=== PATIENT | female | born 1940 | race Caucasian/White ===

== ENCOUNTER 2016-11-17 13:39 | Emergency (ER) | payer MEDICARE, OTHER ==
[2016-11-17] MEDS ORDERED: NS 0.9% 1000 ML* 1,000 ML IV ONE (14:56)
[2016-11-17 15:08] LABS: Hematocrit 38 % (35-47); Hemoglobin 12.7 g/dl (12.0-16.0); Mean Corpuscular HGB Conc 33 g/dl (31-36); Mean Corpuscular Hemoglobin 29 pg (27-31); Mean Corpuscular Volume 87 fL (80-97); Mean Platelet Volume 7 um3 (7.4-10.4); Red Blood Count 4.41 10^6/ul (4.0-5.4); Red Cell Distribution Width 14 % (10.5-15); White Blood Count 8.2 10^3/ul (3.5-10.8)
--- NOTE | 2016-11-17 15:28 | RAD ---
INDICATION: Severe LEFT flank pain which comes and goes. Current episode lasted for past 2 days. COMPARISON: November 01, 2006 CT. TECHNIQUE: Multidetector CT images were obtained from the lung bases to the ischial tuberosities. Evaluation of the viscera is limited without IV contrast. Multiplanar reformation. REPORT: No suspicious finding at the visualized lung bases. 10 cm simple appearing exophytic cyst at the superior pole of the RIGHT kidney results in impression on the RIGHT posterior hepatic segment. No suspicious abnormality of the liver. Negative for biliary dilatation. Unremarkable CT appearance of the gallbladder, pancreas, spleen. Negative for CT abnormality of the upper GI, small bowel, appendix visualized peripheral to the cecum. Severe diverticulosis of the colon most marked at the sigmoid colon without findings of diverticulitis. Negative for ascites or free air. Small fat-containing umbilical hernia without inflammatory change. Normal adrenal glands. In addition to the 10 cm exophytic upper pole cyst a few additional smaller cysts of the RIGHT kidney are present measuring up to 6.7 cm maximum dimension. 2 cm exophytic cyst posterior mid pole LEFT kidney. No suspicious focal renal lesions or hydronephrosis. Unremarkable ureters and partially distended urinary bladder as well as the anteverted uterus and adnexal regions. Pelvic phleboliths noted. Negative for lymphadenopathy. Atherosclerotic calcification of normal diameter abdominal aorta and iliac arteries. Physiologic distention of the IVC. 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 No suspicious focal osseous lesions evident. IMPRESSION: 1. Multiple large simple appearing RIGHT renal cortical cysts. Smaller LEFT renal cortical cyst. No suspicious focal renal lesions, urolithiasis, or hydronephrosis. 2. Colonic diverticulosis most marked at the sigmoid colon without findings of diverticulitis.
[2016-11-17 15:30] LABS: Albumin 4.5 g/dL (3.2-5.2); BUN/Creatinine Ratio 18.2 (8-20); C Reactive Protein 2.73 mg/L (< 5.00); Calcium 10.4 mg/dL (8.6-10.3); EGFR African American 80.1 (>60); EGFR Non-African American 62.3 (>60); Globulin 3.6 g/dL (2-4); Potassium 4.2 mmol/L (3.5-5.0); Total Bilirubin 0.6 mg/dL (0.2-1.0); Total Protein 8.1 g/dL (6.4-8.9)
[2016-11-17 15:46] LABS: Urine Bacteria Absent (Absent); Urine Bilirubin Negative (Negative); Urine Glucose Negative (Negative); Urine Nitrite Negative (Negative)
[2016-11-17 16:19] VITALS: BP 146/67
[2016-11-17] MEDS ORDERED: oxyCODONE/Acetamin 5/325 MG* TAB PO ONE (17:01)
[2016-11-17 17:10] LABS: Urine Bilirubin Negative (Negative); Urine Glucose Negative (Negative); Urine Nitrite Negative (Negative)
--- NOTE | 2016-11-17 17:54 | ED ---
Babatunde Adair Billy, scribed for Edvin Abdullahi MD on 11/17/16 at 1448 . GI/ HPI - HPI Summary HPI Summary: Patient is a 75 year-old female coming to [facility] presenting with intermittent left-sided flank pain starting 2 days ago. Pain severity 5/10. She reports diaphoresis associated with the pain but otherwise has no complaints. She states that she has had several episodes of similar pain in the past, with the first episode starting 2 years ago. However, she denies any history of kidney stones or back problems. - History of Current Complaint Chief Complaint: EDFlankPain Time Seen by Provider: 11/17/16 14:41 Stated Complaint: LOWER BACK PAIN Hx Obtained From: Patient Onset/Duration: Started Days Ago, Still Present Timing: Intermittent Severity: Moderate Current Severity: Moderate Pain Intensity: 5 Location of Pain: Flank - left Associated Signs and Symptoms: Positive: Diaphoresis Aggravating Factor(s): Nothing Alleviating Factor(s): Nothing - Allergy/Home Medications Allergies/Adverse Reactions: Allergies Allergy/AdvReac Type Severity Reaction Status Date / Time Latex Allergy RED ITCHY Verified 11/17/16 13:55 RINGS WITH CONTACT BANDAIDS Allergy RED, ITCHY Uncoded 11/17/16 13:55 AT SITE PMH/Surg Hx/FS Hx/Imm Hx Cardiovascular History: Reports: Hx Hypertension - ON MEDICATION GI History: Reports: Hx Gastroesophageal Reflux Disease, Hx Jaundice - A CHILD [id number], Other GI Disorders - OCCASIONAL INDIGESTION TAKES ZANTAC WHEN NEEDED, NO PROBLEMS NOW History: Denies: Hx Kidney Stones, Hx Renal Disease Musculoskeletal History: Reports: Hx Arthritis - BILATERAL THUMBS AND ONE OF FINGERS Denies: Hx Osteoporosis Sensory History: Reports: Hx Contacts or Glasses - READING GLASSES Denies: Hx Hearing Aid Opthamlomology History: Reports: Hx Contacts or Glasses - READING GLASSES - Cancer History Hx Chemotherapy: No Hx Radiation Therapy: No - Surgical History Surgery Procedure, Year, and Place: BILATERAL TUBAL LIGATION RESULTING IN FULL ABDOMINAL SURGERY, POSSIBLE PERFORATION OF BOWEL, [facility]. 2010 COLONOSCOPY. 2011 SEBACEOUS CYST REMOVED, OFFICE, 09/27/13 RIGHT BREAST BIOPSY Hx Anesthesia Reactions: No Infectious Disease History: No Infectious Disease History: Denies: Traveled Outside the [place] in Last 30 Days - Family History Known Family History: Positive: Other - lung cancer - Social History Alcohol Use: Occasionally Hx Substance Use: No Substance Use Type: Reports: None Hx Tobacco Use: No Smoking Status (MU): Never Smoked Tobacco Review of Systems Positive: Skin Diaphoresis. Negative: Fever Positive: flank pain All Other Systems Reviewed And Are Negative: Yes Physical Exam - Summary Physical Exam Summary: VITAL SIGNS: Reviewed. GENERAL: Patient is a well developed and nourished female who is lying comfortable in the stretcher. Patient is not in any acute respiratory distress. HEAD AND FACE: Normocephalic and atraumatic. EYES: PERRLA, EOMI x 2, No injected conjunctiva. EARS: Hearing grossly intact. Ear canals and tympanic membranes are WNL. MOUTH: Oropharynx within normal limits. NECK: Supple, trachea is midline, no adenopathy, no JVD. CHEST: Symmetric, no tenderness at palpation LUNGS: Clear to auscultation bilaterally. No wheezing or crackles. CVS: RRR,, S1 and S2 present, no murmurs or gallops appreciated. ABDOMEN: Soft, non-tender. No signs of distention. Positive bowel sounds. No rebound no guarding, and no masses palpated. No abdominal bruit or pulsations. Positive left CVAT's. EXTREMITIES: FROM in all major joints, no edema, no cyanosis or clubbing. NEURO: Alert and oriented x 3. No acute neurological deficits. Speech is normal. SKIN: Dry and warm Triage Information Reviewed: Yes Vital Signs On Initial Exam: Initial Vitals Temp Pulse Resp BP Pulse Ox 98.1 F 100 16 155/79 100 11/17/16 13:55 11/17/16 13:55 11/17/16 13:55 11/17/16 13:55 11/17/16 13:55 Vital Signs Reviewed: Yes Diagnostics - Vital Signs Vital Signs Temp Pulse Resp BP Pulse Ox 11/17/16 13:55 98.1 F 100 16 155/79 100 - Laboratory Lab Results: Lab Results 11/17/16 11/17/16 11/17/16 Range/Units 14:55 14:55 14:55 WBC 8.2 (3.5-10.8) 10^3/ul RBC 4.41 (4.0-5.4) 10^6/ul Hgb 12.7 (12.0-16.0) g/dl Hct 38 (35-47) % MCV 87 (80-97) fL MCH 29 (27-31) pg MCHC 33 (31-36) g/dl RDW 14 (10.5-15) % Plt Count 342 (150-450) 10^3/ul MPV 7 L (7.4-10.4) um3 Neut % (Auto) 65.5 (38-83) % Lymph % (Auto) 26.0 (25-47) % [place] % (Auto) 5.5 (1-9) % Eos % (Auto) 2.0 (0-6) % Baso % (Auto) 1.0 (0-2) % Absolute Neuts (auto) 5.3 (1.5-7.7) 10^3/ul Absolute Lymphs (auto) 2.1 (1.0-4.8) 10^3/ul Absolute Monos (auto) 0.4 (0-0.8) 10^3/ul Absolute Eos (auto) 0.2 (0-0.6) 10^3/ul Absolute Basos (auto) 0.1 (0-0.2) 10^3/ul Absolute Nucleated RBC 0.01 10^3/ul Nucleated RBC % 0.1 Sodium 128 L (133-145) mmol/L Potassium 4.2 (3.5-5.0) mmol/L Chloride 96 L (101-111) mmol/L Carbon Dioxide 26 (22-32) mmol/L Anion Gap 6 (2-11) mmol/L BUN 16 (6-24) mg/dL Creatinine 0.88 (0.51-0.95) mg/dL Est GFR ( Amer) 80.1 (>60) Est GFR (Non-Af Amer) 62.3 (>60) BUN/Creatinine Ratio 18.2 (8-20) Glucose 95 (70-100) mg/dL Lactic Acid (0.5-2.0) mmol/L Calcium 10.4 H (8.6-10.3) mg/dL Total Bilirubin 0.60 (0.2-1.0) mg/dL AST 24 (13-39) U/L ALT 16 (7-52) U/L Alkaline Phosphatase 54 (34-104) U/L C-Reactive Protein 2.73 (< 5.00) mg/L B-Natriuretic Peptide ( - 100) pg/mL Total Protein 8.1 (6.4-8.9) g/dL Albumin 4.5 (3.2-5.2) g/dL Globulin 3.6 (2-4) g/dL Albumin/Globulin Ratio 1.3 (1-3) Amylase 67 (29-103) U/L Lipase 31 (11.0-82.0) U/L Urine Color Yellow Urine Appearance Clear Urine pH 5.0 (5-9) Ur Specific [place] 1.010 (1.010-1.030) Urine Protein Negative (Negative) Urine Ketones Negative (Negative) Urine Blood Negative (Negative) Urine Nitrate Negative (Negative) Urine Bilirubin Negative (Negative) Urine Urobilinogen Negative (Negative) Ur Leukocyte Esterase 2+ H (Negative) Urine WBC (Auto) 2+(11-20/hpf) H (Absent) Urine RBC (Auto) Trace(0-2/hpf) (Absent) Ur Squamous Epith Cells Present H (Absent) Urine Bacteria Absent (Absent) Urine Glucose Negative (Negative) Urine Ascorbic Acid * H (Negative) 11/17/16 11/17/16 Range/Units 14:55 14:55 WBC (3.5-10.8) 10^3/ul RBC (4.0-5.4) 10^6/ul Hgb (12.0-16.0) g/dl Hct (35-47) % MCV (80-97) fL MCH (27-31) pg MCHC (31-36) g/dl RDW (10.5-15) % Plt Count (150-450) 10^3/ul MPV (7.4-10.4) um3 Neut % (Auto) (38-83) % Lymph % (Auto) (25-47) % [place] % (Auto) (1-9) % Eos % (Auto) (0-6) % Baso % (Auto) (0-2) % Absolute Neuts (auto) (1.5-7.7) 10^3/ul Absolute Lymphs (auto) (1.0-4.8) 10^3/ul Absolute Monos (auto) (0-0.8) 10^3/ul Absolute Eos (auto) (0-0.6) 10^3/ul Absolute Basos (auto) (0-0.2) 10^3/ul Absolute Nucleated RBC 10^3/ul Nucleated RBC % Sodium (133-145) mmol/L Potassium (3.5-5.0) mmol/L Chloride (101-111) mmol/L Carbon Dioxide (22-32) mmol/L Anion Gap (2-11) mmol/L BUN (6-24) mg/dL Creatinine (0.51-0.95) mg/dL Est GFR ( Amer) (>60) Est GFR (Non-Af Amer) (>60) BUN/Creatinine Ratio (8-20) Glucose (70-100) mg/dL Lactic Acid 0.8 (0.5-2.0) mmol/L Calcium (8.6-10.3) mg/dL Total Bilirubin (0.2-1.0) mg/dL AST (13-39) U/L ALT (7-52) U/L Alkaline Phosphatase (34-104) U/L C-Reactive Protein (< 5.00) mg/L B-Natriuretic Peptide 82 ( - 100) pg/mL Total Protein (6.4-8.9) g/dL Albumin (3.2-5.2) g/dL Globulin (2-4) g/dL Albumin/Globulin Ratio (1-3) Amylase (29-103) U/L Lipase (11.0-82.0) U/L Urine Color Urine Appearance Urine pH (5-9) Ur Specific [place] (1.010-1.030) Urine Protein (Negative) Urine Ketones (Negative) Urine Blood (Negative) Urine Nitrate (Negative) Urine Bilirubin (Negative) Urine Urobilinogen (Negative) Ur Leukocyte Esterase (Negative) Urine WBC (Auto) (Absent) Urine RBC (Auto) (Absent) Ur Squamous Epith Cells (Absent) Urine Bacteria (Absent) Urine Glucose (Negative) Urine Ascorbic Acid (Negative) Result Diagrams: 11/17/16 14:55 11/17/16 14:55 Lab Statement: Any lab studies that have been ordered have been reviewed, and results considered in the medical decision making process. - CT abd/pel CT Interpretation Completed By: Radiologist - 1. Multiple large simple appearing RIGHT renal cortical cysts. Smaller LEFT renal cortical cyst. No suspicious focal renal lesions, urolithiasis, or hydronephrosis. 2. Colonic diverticulosis most marked at the sigmoid colon without findings of diverticulitis. Re-Evaluation - Re-Evaluation First Eval Re-Evaluation Time: 17:45 Comment: Imaging and labs reviewed. Plan for discharge discussed with patient. GIGU Course/Dx - Course Assessment/Plan: Patient is a 75 year-old female coming to [facility] presenting with intermittent left-sided flank pain starting 2 days ago. Pain severity 5/ 10. She reports diaphoresis associated with the pain but otherwise has no complaints. She states that she has had several episodes of similar pain in the past, with the first episode starting 2 years ago. However, she denies any history of kidney stones or back problems. Bloodwork WNL except for sodium of 128, chloride 96, and calcium 10.4. UA is negative for UTI. CT abd/pel shows multiple large simple-appearing right renal cortical cysts, smaller left renal cortical cyst, no suspicious focal renal lesions, urolithiasis, or hydronephrosis; colonic diverticulosis most marked at the sigmoid colon without findings of diverticulitis. At this point we ruled out any urolithiasis, diverticulitis, and AAA. The patient was given IV fluids and Percocet for pain. I discussed the findings and test results iwth the patient and she is disappointed since we found no abnormal findings. I discussed with the patient since we found no abnormal findings, she should follow up with PCP and possibly urology especially if symptoms are to persist. She understands and agrees. She will be given an Rx for Percocet for pain and was asked to return to the ED if pain is not controlled by Percocet, if she develops fever, develops N/V, or any other symptoms. She understands and agrees. She is hemodynamically stable, A& Ox3. - Diagnoses Differential Diagnoses - Female: Pyelonephritis, Renal Calculi, Renal Colic, Urinary Tract Infection, Ureteral Calculi Provider Diagnoses: Flank pain Discharge - Discharge Plan Condition: Stable Disposition: HOME Prescriptions: oxyCODONE/Acetamin 5/325 MG* [Percocet 5/325 TAB*] 1 tab PO Q6H PRN #12 tab MDD max 4 tabs / day PRN Reason: Pain Patient Education Materials: Flank Pain (ED) Referrals: Ashley Hatch [Primary Care Provider] - Parrish Keating MD [Medical Doctor] - The documentation as recorded by the Babatunde ball Billy accurately reflects the service I personally performed and the decisions made by me, Edvin Abdullahi MD.
== END 2016-11-17 17:55 | disposition home or self-care (01) ==
LOC: ED 13:39
DX: R10.84 Generalized abdominal pain (principal); R61 Generalized hyperhidrosis
CPT/HCPCS: 36415; 74176; 80053; 81003; 81015; 82150; 83605; 83690; 83880; 85025; 86140; 87086; 99283; A9270-GY